=== PATIENT | female | born 1935 | race African-American/Black ===

== ENCOUNTER 2018-04-04 15:21 | Observation (INO) | payer OTHER ==
[2018-04-04 15:47] VITALS: BMI 21.1
--- NOTE | 2018-04-04 16:46 | PDOC ---
History of Present Illness - General Chief Complaint: Syncope/Near Syncope Stated Complaint: SYNCOPE - History of Present Illness Initial Comments: patient is a 83 year old female, with a significant past medical history of congenital heart murmur, HTN and GERD, who presents to the emergency department after episode of convulsive syncope today at her grandson's graduation. Pt endorses insomnia last night, poor PO hydration and oral intake this AM. States she was leaving her grandson's graduation at [facility], when she became lightheaded and leaned on a metal pole. Per son, he noted the pt's eyes were closed and went to support her, at which point she went limp with rapid eyes movements, BL miosis. Son supported pt to the floor and placed her in a nearby limo. Pt regained consciousness and was given some water, with rapid return to baseline. Pt denies chest pain, SOB, LE weakness, vision changes, aura. Pt has never had syncopal episode before, but endorses one similar episode of lightheadness in [facility] two years ago. Pt follows with Dr. Whitfield for heart murmur and receives routine ECHO and carotid dopplers, most recently 4 months ago. Pt currently on BB and benicar for HTN. patient denies chest pain, shortness of breath, headache, vision changes, FNDs. Denies fever, chills, nausea, vomiting, diarrhea and constipation. Denies dysuria, frequency, urgency and hematuria. Allergies: None Past surgical history: None Social History: Denies all toxic habits PMD: Dr. Whitfield 04/04/18 16:44 Past History - Past Medical History Allergies/Adverse Reactions: Allergies Allergy/AdvReac Type Severity Reaction Status Date / Time No Known Allergies Allergy Verified 04/04/18 15:41 Home Medications: Ambulatory Orders Carvedilol [Coreg -] 3.125 mg PO DAILY 04/04/18 Lorazepam [Ativan] 1 mg PO HS 04/04/18 Olmesartan Medoxomil [Benicar (Nf)] 0 mg PO DAILY 04/04/18 Cardiac Disorders: Yes (heart murmur) COPD: No DVT: No - Suicide/Smoking/Psychosocial Hx Smoking History: Never smoked Review of Systems - Review of Systems Comments:: GENERAL/CONSTITUTIONAL: +Poor hydration, PO intake over last day. Insomnia. No fever or chills. No weakness. HEAD, EYES, EARS, NOSE AND THROAT: No change in vision. No ear pain or discharge. No sore throat. CARDIOVASCULAR: No chest pain or shortness of breath RESPIRATORY: No cough, wheezing, or hemoptysis. GASTROINTESTINAL: No nausea, vomiting, diarrhea or constipation. GENITOURINARY: No dysuria, frequency, or change in urination. MUSCULOSKELETAL: No joint or muscle swelling or pain. No neck or back pain. SKIN: No rash NEUROLOGIC: +dizziness, syncope, LOC. No headache, FNDs or change in strength/ sensation. ENDOCRINE: No increased thirst. No abnormal weight change HEMATOLOGIC/LYMPHATIC: No anemia, easy bleeding, or history of blood clots. ALLERGIC/IMMUNOLOGIC: No hives or skin allergy. 04/04/18 16:45 *Physical Exam - Vital Signs Last Vital Signs Temp Pulse Resp BP Pulse Ox 98.6 F 83 18 122/62 100 04/04/18 15:35 04/04/18 15:35 04/04/18 15:35 04/04/18 15:35 04/04/18 15:35 - Physical Exam Comments: GENERAL: Elderly woman, awake, alert, and fully oriented, in NAD HEAD: No signs of trauma, normocephalic, atraumatic EYES: PERRLA, EOMI, sclera anicteric, conjunctiva clear ENT: Auricles normal inspection, hearing grossly normal, nares patent, oropharynx clear withoutexudates. Moist mucosa NECK: Normal ROM, supple, no lymphadenopathy, JVD, or masses. No bruits LUNGS: No distress, speaks full sentences, clear to auscultation bilaterally HEART: 3/6 systolic murmur most appreciable in RUSB/LUSB. Regular rate and rhythm, normal S1 and S2, no rubs or gallops, peripheral pulses normal and equal bilaterally. ABDOMEN: Soft, nontender, normoactive bowel sounds. No guarding, no rebound. No masses EXTREMITIES : Normal inspection, Normal range of motion, no edema. No clubbing or cyanosis. NEUROLOGICAL: Cranial nerves II through XII grossly intact. Normal speech, normal gait, no focal sensorimotor deficits SKIN: Warm, Dry, normal turgor, no rashes or lesions noted 04/04/18 16:45 ED Treatment Course - LABORATORY CBC & Chemistry Diagram: 04/04/18 17:48 04/04/18 17:48 Medical Decision Making - Medical Decision Making Patient is a 83 year old female, with a significant past medical history of congenital heart murmur, HTN and GERD, who presents to the emergency department after episode of convulsive syncope today at her grandson's graduation. Ddx included vasovagal syncope, cardiac arrhythmia, carotid stenosis, neurogenic syncope, PE, dehydration, , metabolic derangement. Plan: - Cardiac monitoring - CBC, CMP, Trops, Mg, PT/INR - EKG - Orthostatics - Will likely require f/u carotid U/S, Echo - Plan for Tele Obs admission given cardiac hx 04/04/18 18:15 EKG normal. Discussed admission with pt, very resistant to staying in hospital. 04/04/18 18:29 Cr 1.9. Likely secondary to dehydration from poor PO hydration. Ordered for 1L NS bolus. Pt agreeable to staying overnight. Trudy microblogged. 04/04/18 19:04 Discussed case with Resident Trudy Patten. Will admit to tele obs. Repeat Cr in AM. C/w hydration. 04/04/18 19:37 *DC/Admit/Observation/Transfer Diagnosis at time of Disposition: SHARMILA (acute kidney injury) Syncope Qualifiers: Syncope type: unspecified Qualified Code(s): R55 - Syncope and collapse - Discharge Dispostion Condition at time of disposition: Fair Decision to Admit order: Yes - Referrals Referrals: Jam Whitfield MD [Primary Care Provider] - - Patient Instructions - Post Discharge Activity
--- NOTE | 2018-04-04 17:23 | PDOC ---
Attending Attestation - Resident Resident Name: Hernán Barillas - ED Attending Attestation I have performed the following: I have examined & evaluated the patient, The case was reviewed & discussed with the resident, I agree w/resident's findings & plan, Exceptions are as noted - HPI HPI: 04/04/18 17:16 Ms Serrano is an 83 yo F with a PMH of congenital heart murmur, HTN and GERD, who presents to the ER s/p syncopal event at her grandson's graduation No chest pain No palpitations No prior episodes of syncope in the past Pt slept poorly last night and did not eat or drink much today Currently, pt at her baseline Allergies: none Past surgical history: None Social History: Denies all toxic habits PMD: Dr. Morley - Physicial Exam PE: 04/04/18 17:25 GENERAL: Awake, alert, and fully oriented, in no acute distress HEAD: No signs of trauma, normocephalic, atraumatic NECK: Normal ROM, supple, no lymphadenopathy, JVD, or masses LUNGS: No distress, speaks full sentences, clear to auscultation bilaterally HEART: Regular rate and rhythm, normal S1 and S2, no murmurs, rubs or gallops, peripheral pulses normal and equal bilaterally. ABDOMEN: Soft, nontender, normoactive bowel sounds. No guarding, no rebound. No masses EXTREMITIES : Normal inspection, Normal range of motion, no edema. NEUROLOGICAL: Cranial nerves II through XII grossly intact. Normal speech, normal gait, no focal sensorimotor deficits SKIN: Warm, Dry, normal turgor, no rashes or lesions noted - Medical Decision Making 04/04/18 17:27 83 yo F presenting to the ER s/p syncopal event No head trauma No headache No chest pain or palpitations Will do Labs EKG Pt is at her baseline Will place on observation 04/05/18 00:40 Laboratory Tests 04/04/18 04/04/18 04/04/18 17:48 17:48 18:00 WBC 9.9 Hgb 13.6 Hct 40.6 Plt Count 295 BUN 18 Creatinine 1.9 H Troponin I < 0.02 Urine WBC (Auto) 9 Urine RBC (Auto) 1 No known history of renal insufficiency ? SHARMILA clinical impression: Syncope, initial presentation SHARMILA,initial presentation (likely) Dehydration, initial presentation
[2018-04-04 17:51] LABS: BASO % 1.2 % (0-2.0); EOS % 0.6 % (0-4.5); HEMATOCRIT 40.6 % (32.4-45.2); HEMOGLOBIN 13.6 GM/dL (10.7-15.3); LYMPH % 17.3 % (8-40); MCH 31.2 pg (25.7-33.7); MCHC 33.4 g/dl (32.0-36.0); MEAN CELL VOLUME 93.5 fl (80-96); MEAN PLT VOLUME 8.1 fl (7.5-11.1); MONO % 4.7 % (3.8-10.2); NEUT % 76.2 % (42.8-82.8); PLATELET COUNT 295 K/MM3 (134-434); RBC 4.34 M/mm3 (3.60-5.2); WHITE BLOOD COUNT 9.9 K/mm3 (4.0-10.0)
[2018-04-04 18:03] LABS: INR 1.04 (0.82-1.09); PROTHROMBIN TIME (PATIENT) 11.8 SEC (9.7-13.0)
[2018-04-04 18:13] LABS: ALBUMIN 3.9 g/dl (3.4-5.0); ANION GAP 6 (8-16); BILIRUBIN,TOTAL 0.7 mg/dL (0.2-1.0); BLOOD UREA NITROGEN 18 mg/dL (7-18); CALCIUM 9.8 mg/dL (8.5-10.1); CHLORIDE 101 mmol/L (98-107); CO2 31 mmol/L (21-32); CREATININE 1.9 mg/dL (0.55-1.02); GLUCOSE,RANDOM 128 mg/dL (74-106); MAGNESIUM 2.5 mg/dL (1.8-2.4); POTASSIUM 3.8 mmol/L (3.5-5.1); SGOT/AST 16 U/L (15-37); SGPT/ALT 19 U/L (12-78); SODIUM 138 mmol/L (136-145); TOT PROT 8.2 g/dl (6.4-8.2)
[2018-04-04 18:14] LABS: URINE APPEARANCE SLCLOUDY; URINE BILIRUBIN NEGATIVE (<2.0 mg/dL); URINE COLOR DKYELLOW; URINE GLUCOSE (UA) NEGATIVE (NEGATIVE); URINE KETONE TRACE (NEGATIVE); URINE LEUK ESTERASE 1+ (NEGATIVE); URINE NITRITE NEGATIVE (NEGATIVE); URINE PROTEIN NEGATIVE (NEGATIVE); URINE UROBILINOGEN NEGATIVE mg/dL (0.2-1.0)
[2018-04-04 18:16] LABS: ALK PHOS 93 U/L (45-117)
[2018-04-04 18:16] LABS: URINE BACTERIA RARE /hpf (NONE SEEN); URINE HYALINE CAST 218 /lpf; URINE MUCUS RARE
[2018-04-04] MEDS ORDERED: SODIUM CHLORIDE 1,000 ML IV STA (18:33)
--- NOTE | 2018-04-04 19:21 | HP ---
CHIEF COMPLAINT: PCP:Dr. 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 The patient admits she has not been sleeping or eating well. She was very anxious about being ready on time for her grandsons college graduation yesterday night that she did not sleep. This morning she only ate a piece of toast and a half cup of coffee. She started getting anxious today after the graduation when she was outside with "millions of people everywhere" and everyone was close together she started to get hot and anxious and a feeling came over her. She started to hyperventilate. When she started feeling lightheaded she decided to lean over a pole outside the she fell into her sons arms never really losing consciousness and a limousine was driving by that stopped to help them and she got in and they gave her water and she has been fine and well and asymptomatic since. She states she had an episode similar to this 2 years ago in [facility] and she describe a similar situation of a crowded area with a lot of people around her and she got anxious hot and almost fainted. at that time she did not sleep or eat as good as she usually does too. She states she is very physically active and had a stress test by Dr. Lizama who is a intake counselor and the only doctor she follows with. She states everything was fine. She has been on her medications for 12 years and is supposed to take coreg twice a day but has been taking it once a day for many years and her doctor knows. She denies any history of any renal disease but she has not had blood work in a few years according to her even though she follows with her doctor every three months and has a couple echos a year since she was in first grade to monitor her congenital defect. Her son Rober was present during the whole interview and and contributed to the data gathering. Patient is very hungry. ER course was notable for: (1)Labs (2)EKG (3)Fluids Recent Travel:Denies PAST MEDICAL HISTORY:HTN GERD congenital heart defect-dteails unknown PAST SURGICAL HISTORY: Social History: Smoking: Alcohol: Drugs: Family History:HTN and congenital heart defect-details unknown Allergies No Known Allergies Allergy (Verified 04/04/18 15:41) HOME MEDICATIONS: Home Medications Medication Instructions Recorded Carvedilol [Coreg -] 3.125 mg PO DAILY 04/04/18 Lorazepam [Ativan] 1 mg PO HS 04/04/18 Olmesartan Medoxomil [Benicar (Nf)] 0 mg PO DAILY 04/04/18 REVIEW OF SYSTEMS CONSTITUTIONAL: Absent: fever, chills, diaphoresis, generalized weakness, malaise, loss of appetite, weight change HEENT: Absent: rhinorrhea, nasal congestion, throat pain, throat swelling, difficulty swallowing, mouth swelling, ear pain, eye pain, visual changes CARDIOVASCULAR: Absent: chest pain, syncope, palpitations, irregular heart rate, peripheral edema Present: lightheadedness, Dizziness, presyncope RESPIRATORY: Absent: cough, shortness of breath, dyspnea with exertion, orthopnea, wheezing, stridor, hemoptysis Present: Hyperventilation GASTROINTESTINAL: Absent: abdominal pain, abdominal distension, nausea, vomiting, diarrhea, constipation, melena, hematochezia GENITOURINARY: Absent: dysuria, frequency, urgency, hesitancy, hematuria, flank pain, genital pain MUSCULOSKELETAL: Absent: myalgia, arthralgia, joint swelling, back pain, neck pain SKIN: Absent: rash, itching, pallor HEMATOLOGIC/IMMUNOLOGIC: Absent: easy bleeding, easy bruising, lymphadenopathy, frequent infections ENDOCRINE: Absent: unexplained weight gain, unexplained weight loss, heat intolerance, cold intolerance NEUROLOGIC: Absent: headache, focal weakness or paresthesias, dizziness, unsteady gait, seizure, mental status changes, bladder or bowel incontinence PSYCHIATRIC: Absent: depression, suicidal or homicidal ideation, hallucinations. Present: anxiety PHYSICAL EXAMINATION Vital Signs - 24 hr 04/04/18 15:35 Temperature 98.6 F Pulse Rate 83 Respiratory 18 Rate Blood Pressure 122/62 O2 Sat by Pulse 100 Oximetry (%) GENERAL: Awake, alert, and fully oriented, in no acute distress. HEAD: Normal with no signs of trauma. EYES: Pupils equal, round and reactive to light, extraocular movements intact, sclera anicteric, conjunctiva clear. EARS, NOSE, THROAT: Dry mucous membranes. NECK: Normal range of motion, supple without lymphadenopathy, JVD, or masses. Thyroid about 25gm LUNGS: Breath sounds equal, clear to auscultation bilaterally. No wheezes, and no crackles. No accessory muscle use. HEART: Regular rate and rhythm, normal S1 and S2 without murmur, rub or gallop. ABDOMEN: Soft, nontender, not distended, normoactive bowel sounds, no guarding, no rebound, no masses. MUSCULOSKELETAL: Normal range of motion at all joints. No bony deformities or tenderness. No CVA tenderness. Global muscle strength 5/5 UPPER EXTREMITIES: warm, well-perfused. No peripheral edema. LOWER EXTREMITIES: warm, well-perfused. No calf tenderness. No peripheral edema. NEUROLOGICAL: Cranial nerves II-XII intact. Normal speech. 2+ knee jerk 2+ biceps jerk and triceps jerk bilaterally. proximal and distal muscle strength globally 5/5. No facial assymetry no disdiadokinesia heel to cole intact negative romberg babinski toes down going PSYCHIATRIC: Cooperative. Good eye contact. Appropriate mood and affect. Laboratory Results - last 24 hr 04/04/18 04/04/18 04/04/18 17:48 17:48 17:48 WBC 9.9 RBC 4.34 Hgb 13.6 Hct 40.6 MCV 93.5 MCH 31.2 MCHC 33.4 RDW 13.0 Plt Count 295 MPV 8.1 Neutrophils % 76.2 Lymphocytes % 17.3 Monocytes % 4.7 Eosinophils % 0.6 Basophils % 1.2 PT with INR 11.80 INR 1.04 Sodium 138 Potassium 3.8 Chloride 101 Carbon Dioxide 31 Anion Gap 6 L BUN 18 Creatinine 1.9 H Creat Clearance w eGFR 25.25 Random Glucose 128 H Calcium 9.8 Magnesium 2.5 H Total Bilirubin 0.7 AST 16 ALT 19 Alkaline Phosphatase 93 Creatine Kinase 106 Troponin I < 0.02 Total Protein 8.2 Albumin 3.9 Urine Color Urine Appearance Urine pH Ur Specific [place] Urine Protein Urine Glucose (UA) Urine Ketones Urine Blood Urine Nitrite Urine Bilirubin Urine Urobilinogen Ur Leukocyte Esterase Urine WBC (Auto) Urine RBC (Auto) Urine Bacteria Hyaline Casts Urine Mucus 04/04/18 18:00 WBC RBC Hgb Hct MCV MCH MCHC RDW Plt Count MPV Neutrophils % Lymphocytes % Monocytes % Eosinophils % Basophils % PT with INR INR Sodium Potassium Chloride Carbon Dioxide Anion Gap BUN Creatinine Creat Clearance w eGFR Random Glucose Calcium Magnesium Total Bilirubin AST ALT Alkaline Phosphatase Creatine Kinase Troponin I Total Protein Albumin Urine Color Dkyellow Urine Appearance Slcloudy Urine pH 5.0 Ur Specific [place] 1.019 Urine Protein Negative Urine Glucose (UA) Negative Urine Ketones Trace H Urine Blood Negative Urine Nitrite Negative Urine Bilirubin Negative Urine Urobilinogen Negative Ur Leukocyte Esterase 1+ H Urine WBC (Auto) 9 Urine RBC (Auto) 1 Urine Bacteria Rare Hyaline Casts 218 Urine Mucus Rare ASSESSMENT/PLAN: 83F with history of HTN and GERD presents to the hospital with presyncope found to have SHARMILA. Presyncope: likely anxiety induced vasovagal vs orthostatic hypotension from volume depletion and poor oral intake Place on observation/telemetry telemetry for cardiac monitoring for any arrythmias orthostatic vital signs hold ativan for now but monitor so that she does not withdraw bolus NS then maintenance at 75ml/hr check TSH Lipid panel B12 Folate echo SHARMILA vs CKD: patient does not have any knowledge of kidney disease likely a combination of hypovolemia and being on Benicar Hold Benicar IVF for hydration check renal US to r/o structural disease bolus NS then 75ml/hr trend Cr check urine electrolytes urine sodium urine OSM serum OSM urine eosinophils to rule out Acute interstitial nephritis Hyperglycemia: check HbA1C FEN: NS @ 75ml.hr no electrolyte issues sodium controlled diet PPx: SCDs no GI PPx indicated no PT consult needed case discussed with attending Dr. Camilo Visit type - Emergency Visit Emergency Visit: Yes ED Registration Date: 04/04/18 Care time: The patient presented to the Emergency Department on the above date and was hospitalized for further evaluation of their emergent condition. - New Patient This patient is new to me today: Yes Date on this admission: 04/04/18 - Critical Care Critical Care patient: No Hospitalist Screening - Colonoscopy Questionnaire Colonoscopy Questionnaire: Colonoscopy Questionnaire - Patient: 50 - 75 years old and never had a screening colonoscopy: No History of colon or rectal polyps, or CA: No History of IBD, Crohn's disease or UC: No History of abdominal radiation therapy as a child: No - Relative: 1 with colon or rectal CA, or polyps at age 60 or younger: No Colon or rectal CA diagnosed at age 45 or younger: No Multiple relatives with colon or rectal CA: No - Outcome: Screening Result: Negative Screen
[2018-04-04] MEDS ORDERED: CARVEDILOL 3.125 MG TABLET (FP) PO SCH (22:00)
--- NOTE | 2018-04-04 22:06 | PN ---
Teaching Attending Note Name of Resident: Charles Patten ATTENDING PHYSICIAN STATEMENT I saw and evaluated the patient. Chart, data reviewed. I reviewed the resident's note and discussed the case with the resident. I agree with the resident's findings and plan as documented. SUBJECTIVE: 83F with history of HTN, GERD brought to hospital after she became lightheaded at son's graduation on 04/04 in the evening. Patient was in large crowd and it was hot and she starting to feel lightheaded. No mention of seizures. She was placed inside a limo so she could recover. She improved after drinking some water. Denied any chest pain or shortness of breath. OBJECTIVE: Last Vital Signs Temp Pulse Resp BP Pulse Ox 98.6 F 83 18 122/62 100 04/04/18 15:35 04/04/18 15:35 04/04/18 15:35 04/04/18 15:35 04/04/18 15:35 general- nad, aaox3, pleasant heent -atraumatic, nornocephalic cv-s1+s2+rrr, no murmurs chest -cta abdomen - soft, nt, bs+ ext -no pedal edema skin - no rashes appreciated neuro- no focal neurological deficits Abnormal Lab Results 04/04/18 04/04/18 17:48 18:00 Anion Gap 6 L Creatinine 1.9 H Random Glucose 128 H Magnesium 2.5 H Urine Ketones Trace H Ur Leukocyte Esterase 1+ H ekg -nsr ASSESSMENT AND PLAN: 83yo woman with presyncope episode likely secondary to orthostatic hypotension vs vasovagal mechanism. Troponin negative x1. -tele/observation -send one more troponin -check orthostatics -fall precautions -IV fluid hydration -transthoracic echo #SHARMILA vs CKD -avoid nephrotoxics -urine lytes, osm -serum osm -IV fluid hydration -i/o -daily weights dvt ppx -heparin sc
[2018-04-05] MEDS: SODIUM CHLORIDE 1,000 ML IV SCH (01:20)
[2018-04-05 07:22] LABS: HEMATOCRIT 32.9 % (32.4-45.2); HEMOGLOBIN 11.4 GM/dL (10.7-15.3); MCH 32.8 pg (25.7-33.7); MCHC 34.8 g/dl (32.0-36.0); MEAN CELL VOLUME 94.2 fl (80-96); MEAN PLT VOLUME 8.4 fl (7.5-11.1); PLATELET COUNT 225 K/MM3 (134-434); RBC 3.49 M/mm3 (3.60-5.2); RDW 13.1 % (11.6-15.6); WHITE BLOOD COUNT 6.7 K/mm3 (4.0-10.0)
[2018-04-05] MEDS: HEPARIN NA (PORCINE) 5,000 UNITS/ML 1ML VIAL SQ SCH ×3 (07:30→21:25)
[2018-04-05] MEDS ORDERED: HEPARIN NA (PORCINE) 5,000 UNITS/ML 1ML VIAL ONE (07:37)
[2018-04-05 07:48] LABS: ANION GAP 4 (8-16); BLOOD UREA NITROGEN 17 mg/dL (7-18); CHLORIDE 107 mmol/L (98-107); CHOLESTEROL 294 mg/dL (50-200); CO2 31 mmol/L (21-32); CREATININE 1.5 mg/dL (0.55-1.02); GLUCOSE,RANDOM 101 mg/dL (74-106); HDL CHOLESTEROL 52 mg/dL (40-60); MAGNESIUM 2.4 mg/dL (1.8-2.4); PHOSPHOROUS 3.5 mg/dL (2.5-4.9); POTASSIUM 3.9 mmol/L (3.5-5.1); SODIUM 142 mmol/L (136-145); TRIGLYCERIDES 74 mg/dL (35-160)
[2018-04-05] MEDS: CARVEDILOL 3.125 MG TABLET (FP) PO SCH (10:04)
--- NOTE | 2018-04-05 11:55 | PN ---
Progress Note (short form) - Note Progress Note: Subjective: no pain, OSB , fever or chills. feels back to NL. Objective: Vital Signs: Last Vital Signs Temp Pulse Resp BP Pulse Ox 98.2 F 63 17 116/52 98 04/05/18 09:32 04/05/18 09:52 04/05/18 09:45 04/05/18 09:52 04/05/18 09:45 Laboratory Results - last 24 hr 04/04/18 04/04/18 04/04/18 17:48 17:48 17:48 WBC 9.9 RBC 4.34 Hgb 13.6 Hct 40.6 MCV 93.5 MCH 31.2 MCHC 33.4 RDW 13.0 Plt Count 295 MPV 8.1 Neutrophils % 76.2 Lymphocytes % 17.3 Monocytes % 4.7 Eosinophils % 0.6 Basophils % 1.2 PT with INR 11.80 INR 1.04 Sodium 138 Potassium 3.8 Chloride 101 Carbon Dioxide 31 Anion Gap 6 L BUN 18 Creatinine 1.9 H Creat Clearance w eGFR 25.25 Random Glucose 128 H Calcium 9.8 Phosphorus Magnesium 2.5 H Total Bilirubin 0.7 AST 16 ALT 19 Alkaline Phosphatase 93 Creatine Kinase 106 Troponin I < 0.02 Total Protein 8.2 Albumin 3.9 Triglycerides Cholesterol Total LDL Cholesterol HDL Cholesterol Vitamin B12 TSH Urine Color Urine Appearance Urine pH Ur Specific [place] Urine Protein Urine Glucose (UA) Urine Ketones Urine Blood Urine Nitrite Urine Bilirubin Urine Urobilinogen Ur Leukocyte Esterase Urine WBC (Auto) Urine RBC (Auto) Urine Bacteria Hyaline Casts Urine Mucus 04/04/18 04/05/18 04/05/18 18:00 06:30 06:30 WBC 6.7 D RBC 3.49 L Hgb 11.4 D Hct 32.9 D MCV 94.2 MCH 32.8 MCHC 34.8 RDW 13.1 Plt Count 225 D MPV 8.4 Neutrophils % Lymphocytes % Monocytes % Eosinophils % Basophils % PT with INR INR Sodium 142 Potassium 3.9 Chloride 107 Carbon Dioxide 31 Anion Gap 4 L BUN 17 Creatinine 1.5 H Creat Clearance w eGFR Random Glucose 101 Calcium 9.0 Phosphorus 3.5 Magnesium 2.4 Total Bilirubin AST ALT Alkaline Phosphatase Creatine Kinase Troponin I Total Protein Albumin Triglycerides 74 Cholesterol 294 H Total LDL Cholesterol 223 H HDL Cholesterol 52 Vitamin B12 1806 H TSH 1.66 Urine Color Dkyellow Urine Appearance Slcloudy Urine pH 5.0 Ur Specific [place] 1.019 Urine Protein Negative Urine Glucose (UA) Negative Urine Ketones Trace H Urine Blood Negative Urine Nitrite Negative Urine Bilirubin Negative Urine Urobilinogen Negative Ur Leukocyte Esterase 1+ H Urine WBC (Auto) 9 Urine RBC (Auto) 1 Urine Bacteria Rare Hyaline Casts 218 Urine Mucus Rare Physical Exam: NAD , AAOx3. MMM, no facial droop CV: RRR, no MRG Lungs: CATB Abd:sfot, NT< ND , NL BS Ext: linda sushma neuro : EOMI, round equal pupils , reactive to light. nl facaial sensation . strength 5/5 in upper and lwoer ext proximally and distally. sensation to light touch nl. reflexes 1+ knee jerk . 2+ biceps b/l Assessment/Plan: very pleasant 83 y/o lady with h/o HTN, GERD and a heart murmur who presented with syncopal episode. 1- Syncope : likely orthostatic hypotension in setting of volume depletion in setting of poor po intake. also could be vasovagal. no murmurs on exam. no exertional cp . - cont IVF - no orthostatic drop in BP but pt received IVF - tele 2- SHARMILA : prerenal azotemia in setting of volume depletion and being on ARB - hold ARB - cont IVF 3- h/o HTN: - cont coreg - hold ARB 4- Hyperlipidemia : new diagnosis. LDL 223. - start low dose statin - lipid panel in 8 weeks 5- DVT px : heparin sq Visit type - Emergency Visit Emergency Visit: Yes ED Registration Date: 04/04/18 Care time: The patient presented to the Emergency Department on the above date and was hospitalized for further evaluation of their emergent condition. - New Patient This patient is new to me today: Yes Date on this admission: 04/05/18 - Critical Care Critical Care patient: No
[2018-04-05 14:10] LABS: OSMOLALITY,SERUM 293 mosm/kg (278-305)
[2018-04-05] MEDS ORDERED: PNEUMOC 13-VAL CONJ-DIP CRM/PF 0.5 ML DISP.SYRIN IM ONE (15:15)
[2018-04-06] MEDS: SODIUM CHLORIDE 1,000 ML IV SCH (05:29)
[2018-04-06] MEDS: HEPARIN NA (PORCINE) 5,000 UNITS/ML 1ML VIAL SQ SCH (05:30)
[2018-04-06 06:44] LABS: CHLORIDE 110 mmol/L (98-107); POTASSIUM 3.9 mmol/L (3.5-5.1); SODIUM 143 mmol/L (136-145)
[2018-04-06 06:49] LABS: ANION GAP 5 (8-16); BLOOD UREA NITROGEN 15 mg/dL (7-18); CALCIUM 8.6 mg/dL (8.5-10.1); CO2 28 mmol/L (21-32); CREATININE 1.2 mg/dL (0.55-1.02); GLUCOSE,RANDOM 101 mg/dL (74-106)
[2018-04-06] MEDS: CARVEDILOL 3.125 MG TABLET (FP) PO SCH (09:59)
[2018-04-06 10:11] VITALS: BP 115/93; PULSE 80
[2018-04-06 10:12] VITALS: TEMP 98
--- NOTE | 2018-04-06 13:35 | PN ---
Teaching Attending Note Name of Resident: Roberto Lino ATTENDING PHYSICIAN STATEMENT I saw and evaluated the patient. I reviewed the resident's note and discussed the case with the resident. I agree with the resident's findings and plan as documented. SUBJECTIVE: no fever or chills . no lightheadedness. no abd pain . OBJECTIVE: NAD , AAOx3. CV: RRR, no MRG Lungs: CATB Abd:soft, NT, ND , NL BS Ext: no edema gait: normal and steady Assessment/Plan: very pleasant 83 y/o lady with h/o HTN, GERD and a heart murmur who presented with syncopal episode. 1- Syncope : likely orthostatic hypotension in setting of volume depletion in setting of poor po intake. also could be vasovagal. s/p IVF and tele 2- SHARMILA : prerenal azotemia in setting of volume depletion and being on ARB . Cr 1.2 form 1.9 after IVF. - cont to hold benicar until cr is stable or NL as out pt in 1 week (blood work prescription given ) 3- h/o HTN: - cont coreg - hold ARB as above 4- Hyperlipidemia: new diagnosis. LDL 223. - low dose statin - lipid panel in 8 weeks dc home
--- NOTE | 2018-04-06 14:46 | DS ---
Physical Exam: SUBJECTIVE: Pt reports feeling well this morning and denies any more episodes of lightheadedness. OBJECTIVE: Vital Signs Period Temp Pulse Resp BP Sys/Tello Pulse Ox Last 24 Hr 98.0 F-98.6 F 61-85 15-19 111-135/61-93 98-100 PHYSICAL EXAM GENERAL: NAD, awake, alert, and fully oriented HEENT: EOMI, BARRETT, sclera anicteric, moist mucosa, no JVD noted LUNGS: CTA bilaterally, no wheezes, no crackles, no accessory muscle use. HEART: RRR, S1, S2 with 2/6 systolic ejection murmur at the apex, no radiation to axilla or carotids ABDOMEN: Soft, NT/ND, normoactive bowel sounds, no guarding, no masses. EXTREMITIES: 2+ DP pulses, warm, no edema. NEUROLOGICAL: CN II through XII grossly intact. Strength 5/5 grossly intact. Sensation grossly intact. Normal speech, gait normal PSYCH: Pleasant, normal mood, normal affect. SKIN: Warm, dry, no rashes or lesions noted. LABS Laboratory Results - last 24 hr 04/05/18 04/05/18 04/05/18 21:10 21:10 21:10 Sodium Potassium Chloride Carbon Dioxide Anion Gap BUN Creatinine Random Glucose Calcium Urine Osmolality 468 Ur Random Sodium 109 Ur Random Potassium 16.0 Ur Random Chloride 111 Urine Creatinine 109.0 04/06/18 05:35 Sodium 143 Potassium 3.9 Chloride 110 H Carbon Dioxide 28 Anion Gap 5 L BUN 15 Creatinine 1.2 H Random Glucose 101 Calcium 8.6 Urine Osmolality Ur Random Sodium Ur Random Potassium Ur Random Chloride Urine Creatinine Notable Laboratory Tests 04/05/18 06:30 Triglycerides 74 Cholesterol 294 H Total LDL Cholesterol 223 H HDL Cholesterol 52 Vitamin B12 1806 H Serum Folate 20 H TSH 1.66 HOSPITAL COURSE: Date of Admission:04/04/18 Date of Discharge: 04/06/18 PCP: Dr. Whitfield Pt was admitted on 04/04/18 due to feeling lightheaded at her grandson's graduation at [facility] [place] and was found to be in acute kidney dysfunction. On admission pt was clinically dry appearing, was started on NS@75cc/hr, and had home Benicar discontinued due to SHARMILA (Initial Cr 1.9). Pt's renal electrolytes were collected suggesting a prerenal azotemia etiology and was maintained on her fluids. Pt did not exhibit orthostatic vital signs, however these were performed one day after initiation of IVF. In addition, pt had her cholesterol panel collected which revealed elevated T. Cholesterol and LDL. Pt's creatinine continued to trend down to 1.2 and she is being discharged in normal stable health with instructions to stay hydrated, start Simvastatin 20mg qDaily (with repeat lipid panel in 8 weeks), hold her Benicar, and follow-up with Dr. Whitfield. In addition, she was given a script for a BMP to be drawn at the end of the week to confirm resolution of her SHARMILA. Additional imagin04/04/18 Renal Ultrasound: Possible small nonobstructing stone vs. angiomyolipoma. Minutes to complete discharge: 35 Discharge Summary Reason For Visit: ACUTE KIDNEY INJURY,SYNCOPE Condition: Improved - Instructions Diet, Activity, Other Instructions: You were seen here for your lightheadedness episode which was attributed to not being hydrated enough. In addition, you were kept at the hospital because your kidney function was a little diminished due to your dehydration. MEDICATIONS: Your Benicar (aka Olmesartan) was discontinued as this can also raise your kidney numbers. --We recommend to not take this medication until you can see Dr. Whitfield within the next week --While you were here your blood pressure has been stable and within normal limits while off the Benicar You will be given Simvastatin 20mg to take daily in evening because we found your cholesterol to be elevated Please be sure to remain hydrated and drink up to 8 cups of water daily FOLLOW-UP: Please follow-up with Dr. Whitfield within the next 2-3 days to discuss your Benicar and have a repeat lab draw (Basic Metabolic Profile) for your kidney numbers prescription for blood work in 3-4 days to fax results to Dr. Whitfield Referrals: Guanakito Arauz MD [Staff Physician] - 1 Week Jam Whitfield MD [Primary Care Provider] - Disposition: HOME - Home Medications Comprehensive Discharge Medication List: Ambulatory Orders Carvedilol [Coreg -] 3.125 mg PO DAILY 04/04/18 Lorazepam [Ativan] 1 mg PO HS 04/04/18 Miscellaneous Medical Supply [Outpatient Order] 1 each ASDIR #1 misc Simvastatin 20 mg PO DAILY #30 tablet 04/06/18 This patient is new to me today: Yes Date on this admission: 04/06/18 Emergency Visit: No Critical Care patient: No - Discharge Referral [facility]erred to [facility] Med P.C.: No
--- NOTE | 2018-04-07 00:29 | EKG ---
Test Reason : Blood Pressure : / mmHG Vent. Rate : 078 BPM Atrial Rate : 078 BPM P-R Int : 182 ms QRS Dur : 080 ms QT Int : 414 ms P-R-T Axes : 069 -05 046 degrees QTc Int : 471 ms NORMAL SINUS RHYTHM POSSIBLE LEFT ATRIAL ENLARGEMENT BORDERLINE ECG NO PREVIOUS ECGS AVAILABLE Confirmed by CANDE MARIA, PADMAJA ([id number]) on 04/07/2018 12:28:54 AM Referred By: Confirmed By:PADMAJA CASTELLON MD
== END 2018-04-06 10:45 | disposition home or self-care (01) ==
LOC: JER 15:21 → JERBED 19:41 → J2W 04-05 09:26
PROVIDERS: ADMIT Internal Medicine; ATTEND Internal Medicine
PROC: 3E0337Z Introduction of Electrolytic and Water Balance Substance into Peripheral Vein, Percutaneous Approach (ICD-10-PCS; principal; 2018-04-04)
PROC: 3E013GC Introduction of Other Therapeutic Substance into Subcutaneous Tissue, Percutaneous Approach (ICD-10-PCS; 2018-04-04)
DX: N17.9 Acute kidney failure, unspecified (principal); E86.9 Volume depletion, unspecified; R55 Syncope and collapse; I10 Essential (primary) hypertension; R01.1 Cardiac murmur, unspecified; E86.0 Dehydration; K21.9 Gastro-esophageal reflux disease without esophagitis; E78.5 Hyperlipidemia, unspecified; R79.89 Other specified abnormal findings of blood chemistry
CPT/HCPCS: 36415; 76775-TC; 80048; 80053; 80061; 81003; 81015; 82436; 82550; 82570; 82607; 82746; 83036; 83721; 83735; 83930; 83935; 84100; 84133; 84300; 84443; 84484; 85025; 85027; 85610; 87205; 93005; 93010; 93306-TC; 96360; 96372; 99285-25; G0378; J1644; J7030